=== PATIENT | male | born 1985 | race Caucasian/White ===

== ENCOUNTER 2017-01-18 18:32 | Emergency (ER) | payer SELFPAY ==
[~2017-01-18] VITALS: Ht 185.4 cm; Wt 75.0 kg
[~2017-01-18 18:32] MED LIST: AMOXICILLIN 50500 MG PO; NORCO 325 MG-51 TAB PO; PEN-VEE K250 MG PO; PEN-VEE K500 MG PO; ULTRAM 50MG TAB50 MG PO; XARELTO15 MG PO
[2017-01-18 18:37] VITALS: BP 126/62; TEMP 97.6
[2017-01-18] MEDS ORDERED: NORCO 325 MG-51 TAB PO (19:25)
[2017-01-18 19:42] VITALS: PULSE 70
[2017-01-26] VITALS (173 sets, daily range): O2SAT 87–100
== END 2017-01-18 19:43 | disposition home or self-care (01) ==
LOC: COL.ER 18:32
DX: I82.402 Acute embolism and thrombosis of unspecified deep veins of left lower extremity (principal); Z79.01 Long term (current) use of anticoagulants

== ENCOUNTER 2017-01-26 00:06 | Inpatient (IN) | payer OTHER ==
[~2017-01-26] VITALS: Ht 182.9 cm; Wt 75.0 kg
[2017-01-26] MEDS ORDERED: ELIQUIS 5MG PO (00:12)
[2017-01-26 00:45] LABS: BASO # 0.1 (0.0-0.2); BASO % 0.6 % (0.0-2.0); EOS # 0.1 (0.0-0.7); EOS % 0.9 % (0-4.0); HEMATOCRIT 41.6 % (42.0-52.0); HEMOGLOBIN 14.4 g/dl (13.5-18.0); LYMPH # 2.7 (1.2-3.4); MEAN CELL VOLUME 90 fl (80.0-100.0); MEAN CORPUSCULAR HEMOGLOBIN 31 pg (27.0-31.0); MEAN CORPUSCULAR HGB CONC 35 g/dl (33.0-37.0); MEAN PLATELET VOLUME 9.9 fl (7.4-10.4); MONO # 0.8 (0.1-0.6); MONO % 7.2 % (1.7-9.3); PLATELET COUNT 311 K/mm3 (130-400); RED BLOOD COUNT 4.63 M/mm3 (4.20-5.60); WHITE BLOOD COUNT 11.7 K/mm3 (4.8-10.8)
[2017-01-26 01:09] LABS: ALBUMIN 4.5 gm/dL (3.5-5.0); BILIRUBIN,TOTAL 0.5 mg/dL (0.0-1.0); CALCIUM 8.4 mg/dL (8.4-10.2); CREATININE, serum 0.73 mg/dL (0.66-1.25); TOTAL PROTEIN 7.4 gm/dL (6.4-8.2)
[2017-01-26 01:55] LABS: INR 1.3 (0.8-3.0); PROTHROMBIN TIME 14.7 SECONDS (9.7-12.8)
[2017-01-26 01:57] LABS: PARTIAL THROMBOPLASTIN TIME 34.8 SECONDS (26.0-37.0)
[2017-01-26 04:10] VITALS: BP 135/93; PULSE 86; TEMP 98
[2017-01-26 05:57] LABS: BASO # 0.1 (0.0-0.2); BASO % 0.8 % (0.0-2.0); EOS # 0.2 (0.0-0.7); EOS % 1.8 % (0-4.0); GRAN # 4.9 (1.4-6.5); GRAN % 52.8 % (42.2-75.2); HEMATOCRIT 42.5 % (42.0-52.0); HEMOGLOBIN 14.4 g/dl (13.5-18.0); LYMPH # 3.6 (1.2-3.4); LYMPH % 38.9 % (20.0-51.0); MEAN CELL VOLUME 90 fl (80.0-100.0); MEAN CORPUSCULAR HEMOGLOBIN 31 pg (27.0-31.0); MEAN CORPUSCULAR HGB CONC 34 g/dl (33.0-37.0); MEAN PLATELET VOLUME 10.3 fl (7.4-10.4); MONO # 0.5 (0.1-0.6); MONO % 5.3 % (1.7-9.3); PLATELET COUNT 317 K/mm3 (130-400); RED BLOOD COUNT 4.71 M/mm3 (4.20-5.60); WHITE BLOOD COUNT 9.3 K/mm3 (4.8-10.8)
[2017-01-26 06:13] LABS: CALCIUM 8.5 mg/dL (8.4-10.2); CREATININE, serum 0.71 mg/dL (0.66-1.25); MAGNESIUM 1.9 mg/dL (1.6-2.3); POTASSIUM 3.7 mmol/L (3.4-5.0)
[2017-01-26 06:16] LABS: INR 1.3 (0.8-3.0); PROTHROMBIN TIME 14.2 SECONDS (9.7-12.8)
[2017-01-26 08:00] VITALS: BP 113/76; PULSE 94; TEMP 98.2
[2017-01-26 12:04] VITALS: BP 129/77; PULSE 76; TEMP 98
[2017-01-26 13:01] LABS: COLLECTION METHOD CLEAN CATCH
[2017-01-26 13:12] LABS: MUCOUS Present /lpf; PH 5 (5-8); SQUAMOUS EPITHELIAL None Seen /hpf; URINE APPEARANCE Clear; URINE BACTERIA None Seen /hpf; URINE BILIRUBIN Negative (NEGATIVE); URINE BLOOD 1+ (NEGATIVE); URINE COLOR Yellow; URINE GLUCOSE Negative (NEGATIVE); URINE KETONE 1+ (NEGATIVE); URINE LEUKOCYTE ESTERASE Negative (NEGATIVE); URINE PROTEIN(semi-quant) Negative (NEGATIVE); URINE RBC 0-2 /hpf; URINE UROBILINOGEN Negative (NEGATIVE); URINE WBC None Seen /hpf
[2017-01-26 13:36] LABS: AMPHETAMINE URINE NEGATIVE; BARBITURATES URINE NEGATIVE; BENZODIAZEPINES URINE POSITIVE; BUPRENORPHINE URINE NEGATIVE; METHADONE URINE NEGATIVE; OPIATES URINE NEGATIVE; OXYCODONE URINE NEGATIVE; PHENCYCLIDINE URINE NEGATIVE; PROPOXYPHENE URINE NEGATIVE; THC CANNABINOIDS URINE POSITIVE; TRICYCLIC ANTIDEPRESS URINE NEGATIVE
[2017-01-26 18:00] VITALS: BP 110/64; PULSE 83; TEMP 97.8
[2017-01-26 20:07] VITALS: BP 125/72; PULSE 85; TEMP 97.3
[2017-01-27] VITALS (9 sets, daily range): BP systolic 110–128; BP diastolic 66–80; PULSE 66–93; TEMP 97.5–98.8
[2017-01-28 01:27] VITALS: BP 128/80; PULSE 78; TEMP 98.5
[2017-01-28 04:59] VITALS: BP 107/56; PULSE 65; TEMP 97.7
[2017-01-28 08:10] VITALS: BP 118/69; PULSE 79; TEMP 97.2
[2017-01-28 15:48] VITALS: BP 123/65; PULSE 66; TEMP 98
[2017-01-28 20:37] VITALS: BP 124/76; PULSE 66; TEMP 98.2
[2017-01-29 00:10] VITALS: BP 124/80; PULSE 71; TEMP 98.1
[2017-01-29 06:11] VITALS: BP 105/62; PULSE 67; TEMP 98
[2017-01-29 07:23] VITALS: BP 116/82; PULSE 72; TEMP 98
[2017-01-29 11:08] VITALS: BP 117/64; PULSE 73; TEMP 97.9
[2017-01-29 15:06] LABS: LUPUS ANTICOAGULANT PTT 35 sec (26 - 36)
[2017-01-29 15:15] LABS: LUPUS ANTICOAGULANT INR 1.3 (()); LUPUS ANTICOAGULANT PT 14.3 sec (())
[2017-01-29 15:17] VITALS: BP 101/61; PULSE 73; TEMP 98.5
[2017-01-29 21:11] VITALS: BP 129/80; PULSE 73; TEMP 98.5
[2017-01-30 00:05] VITALS: BP 116/70; PULSE 66; TEMP 97.9
[2017-01-30 03:48] VITALS: PULSE 68
[2017-01-30 07:49] LABS: INR 0.9 (0.8-3.0); PROTHROMBIN TIME 10.1 SECONDS (9.7-12.8)
[2017-01-30 07:57] VITALS: BP 127/76; PULSE 74; TEMP 98.3
[2017-01-30 08:34] LABS: FACTOR II ACTIVITY 100 % (72-140); FACTOR V 77 % (50-150)
[2017-01-30 11:25] VITALS: BP 110/65; PULSE 67; TEMP 97.6
[2017-01-30] MEDS ORDERED: COUMADIN 5MG5 MG/TAB PO (11:41)
[2017-01-30 11:48] LABS: ANTI-THROMBIN III 84 % (72-128)
[2017-01-30 11:51] LABS: PROTEIN C ACTIVITY 123 % (70-150)
[2017-01-30 12:03] LABS: PROTEIN S ACTIVITY >200 % (65-149)
[2017-01-30 12:19] LABS: LUPUS ANTICOAGULANT DRVVT 1.7 ratio (())
[2017-01-30 14:47] LABS: .ANTICARDIOLIPIN IGG <9.4 GPL (()); .ANTICARDIOLIPIN IGM 16.3 MPL (())
== END 2017-01-30 12:06 | disposition left against medical advice (07) | DRG 176 ==
LOC: COL.ER 00:06 → ICU 02:30 → MEDICAL 16:02
PROVIDERS: Emergency Medicine; Nurse Practitioner Family; Physician Assistant
DX: I26.99 Other pulmonary embolism without acute cor pulmonale (principal); I82.432 Acute embolism and thrombosis of left popliteal vein; I82.412 Acute embolism and thrombosis of left femoral vein; F17.210 Nicotine dependence, cigarettes, uncomplicated; F10.10 Alcohol abuse, uncomplicated; Y90.5 Blood alcohol level of 100-119 mg/100 ml; Z79.02 Long term (current) use of antithrombotics/antiplatelets; Z91.14 Patient's other noncompliance with medication regimen
CPT/HCPCS: 99223-AI; 99232-AI; 99233-AI; J1650; J2060; J7030; Q9967

== ENCOUNTER 2021-07-30 19:13 | Emergency (ER) | payer SELFPAY ==
[~2021-07-30] VITALS: Ht 185.4 cm; Wt 63.6 kg
[~2021-07-30 19:13] MED LIST changes: +COUMADIN 5MG5 MG/TAB PO; +ELIQUIS 5MG PO
[2021-07-30 19:16] VITALS: TEMP 97.2
[2021-07-30 20:24] LABS: SYNOVIAL FL. MONONUCLEAR 33.4 % (0-75); SYNOVIAL FLUID RBC 1000 /mm3 (0-0); SYNOVIAL FLUID WBC 8906 /mm3 (200-600)
[2021-07-30 20:37] LABS: SYNOVIAL FLUID APPEARANCE CLOUDY; SYNOVIAL FLUID COLOR YELLOW
[2021-07-30 21:45] VITALS: BP 112/78; PULSE 62
== END 2021-07-30 21:45 | disposition home or self-care (01) ==
LOC: COL.ER 19:13
PROVIDERS: Emergency Medicine
DX: M25.461 Effusion, right knee (principal)